=== PATIENT | male | born 1965 | race Caucasian/White ===

== ENCOUNTER 2016-12-15 06:32 | Day surgery (SDC) | payer MEDICAID ==
[~2016-12-15] VITALS: Ht 193 cm; Wt 114.3 kg
[2016-12-15] MEDS ORDERED: LACTATED RINGERS 1,000 ML IV SCH (06:50)
[2016-12-15] MEDS ORDERED: MORPHINE SULFATE/PF 1MG/ML 10ML AMP ONE (07:18)
[2016-12-15] MEDS ORDERED: EPINEPHRINE 1:1000 1 MG/ML AMP ONE (07:19)
[2016-12-15] MEDS ORDERED: BUPIVACAINE/EPINEPH/PF 0.25%/0.0005 10ML ONE ×2 (07:20→07:21)
[2016-12-15] MEDS ORDERED: MIDAZOLAM HCL 2 MG/2 ML VIAL ONE (07:45)
[2016-12-15] MEDS ORDERED: FENTANYL CITRATE/PF 50MCG/ML 2ML VIAL ONE ×2 (07:46→08:33)
[2016-12-15] MEDS ORDERED: PROPOFOL 200MG/20ML VIAL IV ONE ×2 (07:47→07:58)
[2016-12-15] MEDS ORDERED: ROCURONIUM BROMIDE 10MG/ML VIAL 5ML IV ONE (07:47)
[2016-12-15] MEDS ORDERED: LIDOCAINE HCL 1% 20ML VIAL (Pyxis) INJ ONE (07:47)
[2016-12-15] MEDS ORDERED: CEFAZOLIN SODIUM 1000MG/VIAL ONE (07:59)
[2016-12-15] MEDS ORDERED: FLUO40CA8 PO (08:02)
[2016-12-15] MEDS ORDERED: ALPR0.5T96 PO (08:02)
[2016-12-15] MEDS ORDERED: SIMV20TA6 PO (08:02)
[2016-12-15] MEDS ORDERED: PRED1TAB PO (08:02)
[2016-12-15] MEDS ORDERED: HYDR12.54 PO (08:02)
[2016-12-15] MEDS ORDERED: AMLO10TA80 PO (08:02)
[2016-12-15] MEDS ORDERED: LISI-604 PO (08:02)
[2016-12-15] MEDS ORDERED: ASPI-1159 PO (08:02)
[2016-12-15] MEDS ORDERED: EPHEDRINE SULFATE 50MG/ML VIAL ONE (08:17)
[2016-12-15] MEDS ORDERED: DEXAMETHASONE 4MG/ML 1ML VIAL ONE (08:28)
[2016-12-15] MEDS ORDERED: ONDANSETRON HCL 4MG/2ML VIAL ONE (08:28)
[2016-12-15] MEDS ORDERED: HYDROMORPHONE HCL/PF 2MG/ML CPJ IV PRN (08:30)
[2016-12-15] MEDS ORDERED: SODIUM CHLORIDE 0.9% 1,000 ML IV SCH (08:30)
[2016-12-15] MEDS ORDERED: ONDANSETRON HCL 4MG/2ML VIAL IV PRN ×2 (08:30→09:30)
[2016-12-15] MEDS ORDERED: KETOROLAC 60MG/2ML VIAL IM ONE (08:56)
[2016-12-15] MEDS ORDERED: HYDROCODONE/ACETAMINOPHEN 5/325MG TABLET PO PRN ×2 (09:30)
[2016-12-15] MEDS ORDERED: HYDROMORPHONE HCL/PF 2MG/ML (OR) ONE (11:03)
[2016-12-15 11:07] VITALS: BP 127/75
== END 2016-12-15 11:55 | disposition home or self-care (01) ==
LOC: OR 06:32
PROVIDERS: ATTEND Orthopaedic Surgery
DX: S83.242A Other tear of medial meniscus, current injury, left knee, initial encounter (principal); M65.9 Synovitis and tenosynovitis, unspecified; M94.262 Chondromalacia, left knee; G89.29 Other chronic pain; I10 Essential (primary) hypertension; E78.5 Hyperlipidemia, unspecified; X58.XXXA Exposure to other specified factors, initial encounter; Y93.89 Activity, other specified; Y92.89 Other specified places as the place of occurrence of the external cause; Y99.8 Other external cause status
CPT/HCPCS: 29881; 88305; 88311; 97161; J0171; J0690; J1100; J1170; J1885; J2250; J2405; J3010; J3490; J7030; J7120; L1830; J2274; J2704